=== PATIENT | female | born 1960 | race Caucasian/White ===

== ENCOUNTER 2016-07-03 12:06 | Emergency (ER) ==
[2016-07-03 12:19] VITALS: BP 116/78; TEMP 97.3; BMI 20.6
--- NOTE | 2016-07-03 12:23 | ED.PDOC ---
General ED Provider: Dr. LUCIA WOODALL JR Chief Complaint: Back Pain Stated Complaint: slipped and caught herself --now low back pain radiation left leg[End]3 days 97.3 81 20 116/78 910 Time Seen by Physician: 12:21 Mode of Arrival: Walk-In Information Source: Patient Exam Limitations: No limitations Nursing and Triage Documentation Reviewed and Agree: No Review of Systems - Review Of Systems Constitutional: Reports: No symptoms Eyes: Reports: No symptoms Ears, Nose, Mouth, Throat: Reports: No symptoms Respiratory: Reports: No symptoms Cardiac: Reports: No symptoms GI: Reports: No symptoms : Reports: No symptoms Musculoskeletal: Reports: Back pain, Other Skin: Reports: No symptoms Neurological: Reports: Other (pain radiates down left foot pain in left hip) All Other Systems: Other Past Medical History - Past Medical History Previously Healthy: No Endocrine: Reports: None Cardiovascular: Reports: None Respiratory: Reports: None Hematological: Reports: None Gastrointestinal: Reports: None Genitourinary: Reports: None Neuro/Psych: Reports: None Musculoskeletal: Reports: Joint Pain Cancer: Reports: None, Other (replacement bone marrow) Last Menstrual Period: menopause - Surgical History General Surgical History: Reports: None, Orthopedic (NECK C-6, C-7 ), Other ( replacement bone marrow) - Family History Family History: Reports: None - Social History Smoking Status: Current every day smoker, Heavy tobacco smoker Hx Substance Use: No Alcohol Screening: None Physical Exam - Physical Exam Appearance: Well-appearing Ill-appearing: Moderate Pain Distress: Moderate Eyes: RAFAEL, EOMI, Conjunctiva clear ENT: Ears normal, Nose normal, Oropharynx normal Neck: Supple Respiratory: Airway patent, Breath sounds clear, Breath sounds equal, Respirations nonlabored Cardiovascular: RRR, Pulses normal, No rub, No murmur GI/: Soft, Nontender, No masses, Bowel sounds normal, No Organomegaly Musculoskeletal: Normal strength, ROM intact, No edema, No calf tenderness ( left muscle tightness in leg without baltazar sciatica) Skin: Warm, Dry, Normal color Neurological: Sensation intact, Motor intact, Reflexes intact, Cranial nerves intact, Alert, Oriented Psychiatric: Affect appropriate, Mood appropriate Critical Care Note - Critical Care Note Total Time (mins): 0 Course - Course Vital Signs: Temp Pulse Resp BP Pulse Ox 07/03/16 12:07 97.3 F L 81 20 116/78 97 Departure - Departure Time of Disposition: 12:55 Disposition: HOME SELF-CARE Discharge Problem: Low back strain Qualifiers: Encounter type: initial encounter Qualifier Code: (S39.012A) Strain of muscle, fascia and tendon of lower back, initial encounter Instructions: Low Back Strain (ED), Acute Low Back Pain (ED) Condition: Good Pt referred to PMD for follow-up: Yes Additional Instructions: recheck PMD three days Flexeril for spasms Vance for pain not relieved by flexeril ICE PACK TO PAINFUL AREA THREE TO FOUR TIMES A DAY FOR 10 TO 20 MINUTES FOR TWO TO FOUR DAYS Allergies/Adverse Reactions: Allergies sumatriptan succinate [From Imitrex] Adverse Reaction (Verified 07/03/16 12:14) Difficulty Swallowing trimethoprim [From Bactrim] Adverse Reaction (Verified 07/03/16 12:14) Home Medications: Ambulatory Orders 1 [No Reported Medications] 07/03/16
== END 2016-07-03 13:13 | disposition home or self-care (01) ==
LOC: ED 12:06
DX: S39.012A Strain of muscle, fascia and tendon of lower back, initial encounter (principal); W01.0XXA Fall on same level from slipping, tripping and stumbling without subsequent striking against object, initial encounter; F17.210 Nicotine dependence, cigarettes, uncomplicated
CPT/HCPCS: 99282

== ENCOUNTER 2017-06-11 17:13 | Outpatient (CLI) ==
[2012-10-23 01:00] VITALS: TEMP 99.4
== END 2017-06-11 17:14 | disposition home or self-care (01) ==
LOC: LAB 17:13
PROVIDERS: ATTEND Emergency Medicine
DX: R06.02 Shortness of breath (principal); R10.84 Generalized abdominal pain; R53.1 Weakness
CPT/HCPCS: 36415; 80053; 84443; 85025

== ENCOUNTER 2017-06-14 13:05 | Outpatient (CLI) ==
[2012-10-23 01:00] VITALS: TEMP 99.4
--- NOTE | 2017-06-14 14:31 | CT ---
EXAM: CT chest without contrast HISTORY: Shortness of breath with cough and upper abdominal pain for 3 weeks COMPARISON: Same day CT abdomen pelvis and CT chest 12/29/2015 TECHNIQUE: Serial axial images of the chest were obtained from the lung apices to the upper abdomen without contrast. These were viewed in multiple planes. FINDINGS: The thyroid is normal. The visualized vessels are unchanged with the aortic arch measurin g 2.7 cm in diameter, unchanged from previous examination 2016. The heart is normal in size without pericardial effusion. There are no pathologically enlarged mediastinal or hilar lymph nodes. There i s mild wall thickening of the distal esophagus. There is no pneumothorax or pleural effusion. There is mild emphysematous disease. There is no cons olidation, nodule or mass. The airways are patent. The soft tissues in the upper abdomen are unremarkable. The osseous structures demonstrate scattered degenerative disease of the thoracic spine. IMPRESSION: 1. No acute consolidation with scattered moderate emphysema. 2. There is mild atherosclerotic disease of the aorta with the aortic arch measuring unchanged in si ze when compared to 2016.
--- NOTE | 2017-06-14 14:40 | CT ---
EXAM: CT Abdomen without contrast. CT Pelvis without contrast. HISTORY: Generalized abdominal pain. COMPARISON: None available. TECHNIQUE: Multiple axial images of the abdomen and pelvis were obtained without intravenous contras t. Images were reformatted in the coronal plane. FINDINGS: Please note that evaluation of the abdominal and pelvic structures is limited due to lack of intravenous contrast. The lung bases are clear. No acute osseous abnormality is identified. The liver, gallbladder, pancreas, spleen, and adrenal glands demonstrate normal contour. No calcifie d renal stones or hydronephrosis detected.. The bowel is normal in course and caliber without evidence for obstruction or inflammatory process. Mild [id number] diverticulosis noted. The appendix is normal. Uterus is small or absent. Urinary bl adder is unremarkable. No free fluid or free air detected. Atherosclerotic calcifications are prese nt IMPRESSION: No acute abnormality within the abdomen or pelvis.
== END 2017-06-14 13:06 | disposition home or self-care (01) ==
LOC: RAD 13:05
PROVIDERS: ATTEND Emergency Medicine
DX: R10.84 Generalized abdominal pain (principal); R06.02 Shortness of breath; F17.200 Nicotine dependence, unspecified, uncomplicated

== ENCOUNTER 2017-06-18 12:50 | Outpatient (CLI) ==
[2012-10-23 01:00] VITALS: TEMP 99.4
--- NOTE | 2017-06-18 15:10 | DI ---
Exam: Three x-rays of the cervical spine. Comparison: CT cervical spine performed 07/26/2013. Reason for exam: Cervicalgia. FINDINGS: No acute fracture is seen. There is multilevel degenerative disease with intervertebral b steven disc space height narrowing and osteophyte formation. Similar appearing osseous fusion is seen s panning C5-C7. The prevertebral soft tissues are within normal limits. The dens appears intact on t he open-mouth odontoid view. IMPRESSION: 1. No acute fracture or listhesis in the cervical spine. If clinical concern exists for radiculopathy or myelopathy, MRI may be performed. 2. Multilevel degenerative disease with intervertebral body disc space height narrowing and osteophy te formation. 3. Osseous fusion from C5-C7.
== END 2017-06-18 12:51 | disposition home or self-care (01) ==
LOC: RAD 12:50
PROVIDERS: ATTEND Emergency Medicine
DX: M54.2 Cervicalgia (principal)

== ENCOUNTER 2017-07-04 12:14 | Outpatient (CLI) ==
[2012-10-23 01:00] VITALS: TEMP 99.4
--- NOTE | 2017-07-04 21:19 | MRI ---
EXAM: MRI cervical spine without IV contrast. DATE: 04 July 2017. HISTORY: Cervical radiculopathy. C-spine surgery 1992 and 1993. TECHNIQUE: Sagittal and axial T1W and T2W sequences of the cervical spine along with sagittal IR and coronal T2W sequences were obtained using 1.2 Verena magnet. No IV contrast. COMPARISON: C-spine series 06/18/2017. CT C-spine 26 July 2013. FINDINGS: There is no cervical scoliosis. Previous discectomy and interbody osseous fusion (stable) is observed at C5-6. Partial anterior fusion of the C6 and C7 vertebral bodies is noted. A 1.5 mm anterior subluxation of C2 relative to C3 is noted. No other subluxation, acute fracture, osseous ma lignancy, or jumped facet is evident. Cervical vertebra are normal in height. Minor anterior wedge appearance of the T1 vertebral body is chronic. Bone marrow signal is normal. Small anterior osteop hytes are present at several levels. Mild C3-4 and moderate C4-5 disc space narrowing is detected. Superior osteophytes are noted at the C1 - odontoid articulation. Cervical and upper thoracic spinal cord reveals no syrinx, cord edema, myelomalacia, or neoplasm. Visible brainstem is normal. There is no cerebellar tonsillar ectopia. Mild adenoid hypertrophy geno ears chronic, and contains a small retention cyst. Visible mastoid air cells are normal. The T2W br ight, T1W intermediate signal, 3.5 mm focus in the anterior margin of the right side of the epiglotti s may represent adherent mucus or small cyst. Larynx and trachea appear normal. No thyroid, submand ibular, or parotid gland neoplasm is evident. No suspicious neck mass, cervical lymphadenopathy, api donnie lung mass, pneumonia, or pleural effusion is identified. Segmental analysis: C2-3: Minor anterior subluxation of C2 and small pseudodisc bulge do not cause cord compression or c entral stenosis. Mild right foraminal stenosis is due to uncinate hypertrophy and mild right facet ar thropathy. C3-4: Broad posterior disc/osteophyte complex (3 mm AP) does not contact the cord rest;, cord is sli ghtly flattened anteriorly. Canal is 9 mm AP. Marked right and moderate/marked left foraminal steno ses are due to uncinate hypertrophy, marked right facet arthropathy, and minor left facet disease. C4-5: Broad posterior disc/osteophyte complex (2.8 mm AP) approaches the cord anteriorly. Canal is 9.1 mm AP. Marked bilateral foraminal stenoses due to uncinate hypertrophy, moderate facet arthropat hy, and minor left facet disease. C5-6: S/P discectomy and interbody fusion. Canal is 10.6 mm AP mild right and moderate left foramin al stenoses due to uncinate hypertrophy. C6-7: Minor posterior disc/osteophyte complex (1.4 mm AP) does not contact the cord. Canal is 9.4 m m AP. Minor right foraminal narrowing is due to uncinate hypertrophy. C7-T1: small posterior disc bulge (1.6 mm AP) does not contact the cord. Canal is 10.3 mm AP. Each foramen is patent. T1-2: No disc protrusion or central stenosis. Mild/moderate foraminal narrowing is due to facet art hropathy. T2-3: Sagittal images reveal small posterior disc bulge, but no cord compression or central canal st enosis. Moderate right foraminal narrowing is due to uncinate hypertrophy and mild facet arthropathy . T3-4: Sagittal images reveal minor posterior disc bulge without cord compression, central stenosis o r left foraminal stenosis. Moderate foraminal stenosis is due to uncinate hypertrophy and mild facet arthropathy. IMPRESSIONS: 1. S/P discectomy and interbody osseous fusion at C5-6. Anterior osseous fusion at C6-7. 2. Mild cervical spondylosis, mild facet arthropathy, and multilevel DDD. 3. Mild cord flattening at C3-4 and C4-5. No syrinx or myelomalacia. 4. Multilevel moderate/high-grade cervical foraminal stenoses. 5. Mild adenoid hypertrophy appears chronic and likely benign. 6. Right side vallecula tiny cyst (3.5 mm) vs mucous secretions.
== END 2017-07-04 12:15 | disposition home or self-care (01) ==
LOC: RAD 12:14
PROVIDERS: ATTEND Emergency Medicine
DX: M54.12 Radiculopathy, cervical region (principal); M54.2 Cervicalgia

== ENCOUNTER 2017-07-09 13:04 | Outpatient (CLI) ==
[2012-10-23 01:00] VITALS: TEMP 99.4
[2017-07-09] MEDS ORDERED: ALBUTEROL 0.083% NEB NEB STA (13:20)
== END 2017-07-09 13:05 | disposition home or self-care (01) ==
LOC: CAR 13:04
PROVIDERS: ATTEND Emergency Medicine
DX: R06.02 Shortness of breath (principal); F17.200 Nicotine dependence, unspecified, uncomplicated

== ENCOUNTER 2018-03-10 12:24 | Outpatient (CLI) ==
[2012-10-23 01:00] VITALS: TEMP 99.4
== END 2018-03-10 12:25 | disposition home or self-care (01) ==
LOC: RHC-LAB 12:24
PROVIDERS: ATTEND Nurse Practitioner Family
DX: Z72.0 Tobacco use (principal)
CPT/HCPCS: 36415; 80053; 80061

== ENCOUNTER 2018-03-25 12:53 | Outpatient (CLI) ==
[2012-10-23 01:00] VITALS: TEMP 99.4
--- NOTE | 2018-03-26 09:49 | MAMMO ---
EXAM: Bilateral digital screening mammogram (2-D and 3-D) History: Screening Comparison: None available. Findings: MLO and CC views of bilateral breasts demonstrate heterogeneously dense breast parenchyma which can obscure small lesions. Benign appearing calcifications are seen within the right breast. CAD was reviewed by the radiologist. Tomosynthesis was performed. No dominant masses and no architec tural distortions Impression: Benign mammogram. Recommend followup routine screening mammography in 1 year. BIRADS 2
== END 2018-03-25 12:54 | disposition home or self-care (01) ==
LOC: RAD 12:53
PROVIDERS: ATTEND Nurse Practitioner Family
DX: Z12.31 Encounter for screening mammogram for malignant neoplasm of breast (principal)

== ENCOUNTER 2018-08-20 08:56 | Outpatient (CLI) ==
[2012-10-23 01:00] VITALS: TEMP 99.4
--- NOTE | 2018-08-20 11:07 | CT ---
EXAM: CT urogram HISTORY: Hematuria COMPARISON: None TECHNIQUE: CT urogram performed with and without intravenous contrast. Coronal and sagittal reforma tted images obtained. Post contrast images obtained in the arterial and delayed excretory phase. 3- D and MIP reformatted images created FINDINGS: Lung bases clear. Right sided Bochdalek hernia. No free air. No acute abnormalities of the bones. Heart normal in size. Liver appears normal. Gallbladder appears normal. Pancreas appea rs normal. Spleen appears normal. Adrenals appear normal. Aorta normal in caliber. Moderate ather osclerosis. No lymphadenopathy or ascites. Wall thickening distal esophagus. Small hiatal hernia. No dilated loops small bowel. Appendix appears normal. Colonic diverticulosis. Uterus unremarkabl e. No hydronephrosis or nephrolithiasis. No calculi visualized in normal course of the ureters. Renal cortical enhancement is symmetric. No renal mass. Excretion is symmetric. No filling defects ident ified in the right or left collecting system. No filling defects identified in the ureters, noting m ajority of the right and left ureter not opacified and therefore not evaluated. Partially opacified bladder is poorly distended and poorly evaluated, without abnormality identified IMPRESSION: 1. No hydronephrosis or nephrolithiasis. No renal mass. 2. Wall thickening distal esophagus could relate to esophagitis. Underlying lesion not excluded. R ecommend correlation with endoscopy. Small hiatal hernia also present 3. Colonic diverticulosis. 4. Atherosclerosis
== END 2018-08-20 08:57 | disposition home or self-care (01) ==
LOC: RAD 08:56
PROVIDERS: ATTEND Physician Assistant Medical
DX: R31.21 Asymptomatic microscopic hematuria (principal)
CPT/HCPCS: 36415; 82565

== ENCOUNTER 2018-08-22 15:03 | Outpatient (CLI) ==
[2012-10-23 01:00] VITALS: TEMP 99.4
== END 2018-08-22 15:04 | disposition home or self-care (01) ==
LOC: RHC-LAB 15:03
PROVIDERS: ATTEND Nurse Practitioner Family
DX: F41.9 Anxiety disorder, unspecified (principal); E78.5 Hyperlipidemia, unspecified; Z72.0 Tobacco use
CPT/HCPCS: 36415; 80053; 80061; 84443; 85025

== ENCOUNTER 2018-08-28 08:57 | Outpatient (CLI) ==
[2012-10-23 01:00] VITALS: TEMP 99.4
--- NOTE | 2018-08-28 09:48 | DI ---
EXAM: Cervical spine seven views, including flexion and extension views and oblique views HISTORY: Degenerative disc disease COMPARISON: 06/18/2017 FINDINGS: Osseous fusion of C5-C7. Vertebral bodies normal height. No fracture. Multilevel margin al osteophyte formation. Multilevel intervertebral disc space narrowing. Multilevel facet and uncov ertebral hypertrophy. Degenerative changes cause bilateral neural foraminal narrowing that is greate st at C4-C5 bilaterally. No spondylolisthesis in neutral position or with flexion or extension. Pre vertebral soft tissues appear normal. IMPRESSION: 1. Chronic discogenic degenerative disease and facet arthrosis. 2. Osseous fusion C5-C7. 3. No spondylolisthesis. No segment instability.
--- NOTE | 2018-08-28 11:18 | MRI ---
Examination: MRI of the cervical spine without contrast 08/28/2018 Clinical information: Cervical degenerative disc disease, C5-6 fusion. Comparison: 07/04/2017. TECHNIQUE: Sagittal and axial T1 and T2W imaging, sagittal STIR, coronal T2 and axial 3-D T2W sequen leeanne were performed. FINDINGS: The craniocervical junction is unremarkable. The cervical spinal cord is normal in overall signal, size and morphology. Status post C5-6 ACDF with osseous interbody fusion. There is partial osseous interbody fusion at C6-C7. Straightening of the usual lower cervical lordosis. The cervica l vertebrae are otherwise normal in height and AP alignment. There is moderate loss of disc height a t C3-C4 with discogenic endplate irregularity and minor degenerative endplate edema eccentric left. Severe loss of disc height at C4-C5 with ventral spondylosis and minor discogenic endplate irregulari ty. There is no unusual marrow edema. No paravertebral edema is seen. Minor S-shaped cervicothorac ic scoliosis. There are submucosal cysts within the posterior nasopharynx. At the C2-C3 level, there is a small left paracentral disc protrusion. Modest right and mild left fa cet arthropathy. No significant central spinal canal stenosis or foraminal stenosis. At the C3-C4 level, there is a broad-based posterior disc/osteophyte complex eccentric left which fla ttens the cord causing mild-moderate central spinal canal stenosis. There is severe bilateral forami nal stenosis. Mild bilateral facet hypertrophy. At the C4-C5 level, there is a broad-based posterior disc/osteophyte complex which flattens the cord causing moderate central spinal canal stenosis. There is moderate right and mild left hypertrophic f acet arthropathy. There is severe bilateral foraminal stenosis due to facet and uncovertebral hypert rophy. At the C5-6 level, there is osseous interbody fusion. No significant central spinal canal stenosis o r foraminal stenosis. At the C6-C7 level, there is osseous interbody fusion. A dorsal spondylotic ridge eccentric left whi ch slightly indents the cord causing mild central spinal canal stenosis. There is mild right neural foraminal stenosis. At the C7-T1 level, there is moderate left and mild right hypertrophic facet arthropathy. Reactive l eft facet joint edema. There is no central spinal canal stenosis. There is mild right neural forami nal stenosis. When compared to the 07/04/2017 exam, no significant interval change. The reactive left C7-T1 facet joint edema is new. Impression: 1. Mild-moderate C3-C4 and moderate C4-C5 central spinal canal stenosis secondary to broad-based pos terior disc/osteophyte complexes which flatten the cord. 2. Multilevel foraminal stenosis as noted, most severe at C3-C4 and C4-C5. 3. Status post C5-6 ACDF with osseous interbody fusion. Partial osseous interbody fusion at C6-C7. Mild C6-C7 central spinal canal stenosis secondary to a dorsal spondylotic ridge. 4. Multilevel hypertrophic facet arthropathy. Reactive left C7-T1 facet joint edema.
== END 2018-08-28 08:58 | disposition home or self-care (01) ==
LOC: RAD 08:57
PROVIDERS: ATTEND Physician Assistant Surgical
DX: M54.12 Radiculopathy, cervical region (principal); M47.22 Other spondylosis with radiculopathy, cervical region; M50.30 Other cervical disc degeneration, unspecified cervical region; G56.21 Lesion of ulnar nerve, right upper limb

== ENCOUNTER 2018-09-23 12:30 | Emergency (ER) ==
[2018-09-23 12:44] VITALS: BMI 21.1
[2018-09-23 16:19] VITALS: BP 114/72; TEMP 98.1
--- NOTE | 2018-09-23 17:19 | ED.PDOC ---
General ED Provider: Dr. AILIN BRYANT Chief Complaint: Bite Stated Complaint: Syncopal episode/tick bite/ok now. Had tick bite to lt groin last week. No inflamatory changes now feels like small gland swollen but not painful. Yeserday had abdomial cramping-Nausea, while standing preparing to leave her friends house to go home became light headed, slid down pole to ground while holding on to her friend then has brief LOC/ Then had N-V and felt better Time Seen by Physician: 17:00 Mode of Arrival: Walk-In Information Source: Patient Exam Limitations: No limitations Primary Care Provider: SHIRA BELLO Nursing and Triage Documentation Reviewed and Agree: Yes Does patient meet sepsis criteria?: No If yes, has appropriate treatment been initiated?: No System Inflammatory Response Syndrome: Not Applicable Sepsis Protocol: For patient's 13 years and over: Temp is 96.8 and below OR 101 and greater Pulse >90 BPM Resp >20/minute Acutely Altered Mental Status Are patient's symptoms suggestive of a new infection, such as: -Pneumonia -Skin, Soft Tissue -Endocarditis -UTI -Bone, Joint Infection -Implantable Device -Acute Abdominal Infection -Wound Infection -Meningitis -Blood Stream Catheter Infection -Unknown Review of Systems - Review Of Systems Constitutional: Reports: Weakness Eyes: Reports: No symptoms Ears, Nose, Mouth, Throat: Reports: No symptoms Respiratory: Reports: No symptoms Cardiac: Reports: Syncope GI: Reports: No symptoms : Reports: No symptoms Musculoskeletal: Reports: No symptoms Skin: Reports: Other (tick bite) Neurological: Reports: Weakness Endocrine: Reports: No symptoms Hematologic/Lymphatic: Reports: No symptoms All Other Systems: Reviewed and Negative Past Medical History - Past Medical History Previously Healthy: No Endocrine: Reports: None Cardiovascular: Reports: None Respiratory: Reports: None Hematological: Reports: None Gastrointestinal: Reports: None Genitourinary: Reports: None Neuro/Psych: Reports: None Musculoskeletal: Reports: Joint Pain Cancer: Reports: None, Other (replacement bone marrow) Last Menstrual Period: 20 years - Surgical History General Surgical History: Reports: None, Orthopedic (NECK C-6, C-7 ), Other ( replacement bone marrow) - Family History Family History: Reports: None - Social History Smoking Status: Current every day smoker, Heavy tobacco smoker Hx Substance Use: No Alcohol Screening: None Physical Exam - Physical Exam Appearance: Well-appearing, No pain distress, Well-nourished Eyes: RAFAEL, EOMI, Conjunctiva clear ENT: Ears normal, Nose normal, Oropharynx normal Respiratory: Airway patent, Breath sounds clear, Breath sounds equal, Respirations nonlabored Cardiovascular: RRR, Pulses normal, No rub, No murmur GI/: Soft, Nontender, No masses, Bowel sounds normal, No Organomegaly Musculoskeletal: Normal strength, ROM intact, No edema, No calf tenderness Skin: Warm, Dry, Normal color Neurological: Sensation intact, Motor intact, Reflexes intact, Cranial nerves intact, Alert, Oriented Psychiatric: Affect appropriate, Mood appropriate Interpretation - Radiology Interpretation Exam Interpreted: Portable CXR (Normal findings), CT Scan (Head-normal) Critical Care Note - Critical Care Note Total Time (mins): 0 Course - Course Hematology/Chemistry: 09/23/18 17:38 09/23/18 17:38 Orders, Labs, Meds: Lab Review 09/23/18 09/23/18 09/23/18 17:38 17:38 17:38 WBC 6.97 RBC 4.47 Hgb 13.2 Hct 40.5 MCV 90.6 MCH 29.5 MCHC 32.6 RDW Coeff of Nayla 12.3 Plt Count 179 Immature Gran % (Auto) 0.1 Neut % (Auto) 61.4 Lymph % (Auto) 26.5 [place] % (Auto) 6.5 Eos % (Auto) 4.6 Baso % (Auto) 0.9 Immature Gran # (Auto) 0.0 Neut # (Auto) 4.3 Lymph # (Auto) 1.9 [place] # (Auto) 0.5 Eos # (Auto) 0.3 Baso # (Auto) 0.1 Sodium 137.6 Potassium 4.12 Chloride 101.3 Carbon Dioxide 27.3 Anion Gap 13.12 BUN 20.2 H Creatinine 0.88 Estimated GFR (MDRD) 66.00 BUN/Creatinine Ratio 22.95 Glucose 132.3 H Calcium 9.13 Total Bilirubin 0.35 AST 29.0 ALT 19.8 Alkaline Phosphatase 67.9 Troponin I < 0.012 Total Protein 7.79 Albumin 4.57 Globulin 3.22 Albumin/Globulin Ratio 1.41 Lyme IgG 18 kDa Band Absent Lyme IgG 23 kDa Band Absent Lyme IgG 28 kDa Band Absent Lyme IgG 30 kDa Band Absent Lyme IgG 39 kDa Band Absent Lyme IgG 41 kDa Band Absent Lyme IgG 45 kDa Band Absent Lyme IgG 58 kDa Band Absent Lyme IgG 66 kDa Band Absent Lyme IgG 93 kDa Band Absent Lyme IgG W Blot Interp Negative Lyme IgM 23 kDa Band Absent Lyme IgM 39 kDa Band Absent Lyme IgM 41 kDa Band Present H Lyme IgM Interpretaton Negative Spotted Fever Grp IgM 0.98 H Rickettsia IgG Ab Negative Rickettsia IgG Ab IFA Orders Category Date Time Status EKG-(ED ONLY) Stat CARDIO 09/23/18 17:27 Completed CBC W/ AUTO DIFF Stat LAB 09/23/18 17:38 Completed CMP [COMPREHENSIVE METABOLIC PANEL] Stat LAB 09/23/18 17:38 Completed LYME, WESTERN BLOT, SERUM Stat LAB 09/23/18 17:38 Completed ANTONINO MTN SPOTTED FEVER,IgG Stat LAB 09/23/18 17:38 Completed ANTONINO MTN SPOTTED FEVER,IgM Stat LAB 09/23/18 17:38 Completed TROPONIN I Stat LAB 09/23/18 17:38 Completed CHEST, 1V AP ONLY Stat RADS 09/23/18 17:[address] HEAD W/O CONTRAST Stat RADS 09/23/18 17:27 Completed Vital Signs: Temp Pulse Resp BP Pulse Ox 09/23/18 15:25 98.1 F 70 20 114/72 97 09/23/18 12:31 97.8 F 73 20 135/81 94 L DEVON Risk Score DEVON Risk Score: Risk Score Odds of by 30D 0 0.1 (0.1-0.2) 1 0.3 (0.2-0.3) 2 0.4 (0.3-0.5) 3 0.7 (0.6-0.9) 4 1.2 (1.0-1.5) 5 2.2 (1.9-2.6) 6 3.0 (2.5-3.6) 7 4.8 (3.8-6.1) Departure - Departure Time of Disposition: 18:45 Disposition: HOME SELF-CARE Discharge Problem: Vasovagal episode Instructions: Tick Bite (ED) Condition: Good Pt referred to PMD for follow-up: Yes IPMP verified?: No Additional Instructions: Remain on all meds Follow up PCP in 1 week Allergies/Adverse Reactions: Allergies sumatriptan succinate [From Imitrex] Adverse Reaction (Verified 09/23/18 12:45) Difficulty Swallowing trimethoprim [From Bactrim] Adverse Reaction (Verified 09/23/18 12:45) Home Medications: Ambulatory Orders Hydrocodone/Acetaminophen [[place] 7.5-325 Tablet] 1 each PO BID #60 tab-cap 01/13 Disposition Discussed With: Patient Neurological Complaint Exam - Syncope/Near Syncope Complaint/Exam Onset/Duration: 24 hrs Symptoms Are: Resolved Episodes Lasting: Minutes Episodes Witnessed: Yes Loss of Consciousness: Yes (1 min) Associated Head Trauma: No Activity at Onset: At rest Alleviating: Reports: Spontaneous resolution Associated Signs and Symptoms: Denies: Pain, Decreased oral intake, Vomiting, Diarrhea, GI blood loss, Short of air, Chest pain, Palpitations, Diaphoresis, Lightheadedness, Dizziness, Weakness, AMS, Numbness, Headache, Seizure, Remote head trauma, Recent head trauma Dysrhythmia Risk Factors: Reports: >45 years old Related Surgical History: Reports: None JVD Present: No Carotid Bruit Present: No Nystagmus Present: No Gag Reflex Present: Yes Meningeal Signs Positive: No Focal Weakness: Present: None Focal Sensory Loss: Present: None Gait: Normal Differential Diagnoses: Dysrhythmia, Vasovagal Episode
--- NOTE | 2018-09-23 18:37 | CT ---
EXAM: CT brain without contrast HISTORY: Near syncope TECHNIQUE: CT of the brain without intravenous contrast FINDINGS: There is no acute hemorrhage midline shift or mass effect. No hydrocephalus or abnormal e xtra-axial fluid collection. No significant parenchymal attenuation abnormality. The bony cranium a ppears normal. The visualized paranasal sinuses are clear. Soft tissues without significant abnormal ity. IMPRESSION: 1. CT of the brain within normal limits.
--- NOTE | 2018-09-23 18:42 | DI ---
EXAM: Single View Chest HISTORY: Vagal reaction COMPARISON:09/01/2008 FINDINGS: No definitive focal infiltrates, pneumothorax or effusions are identified. Cardiac size is within no rmal limits. Mediastinal silhouette appears stable. Bony structure evaluation is limited on single view. Right hemidiaphragm elevation is present. IMPRESSION: No definite acute cardiopulmonary process identified.
== END 2018-09-23 19:07 | disposition home or self-care (01) ==
LOC: ED 12:30
DX: R55 Syncope and collapse (principal); R53.1 Weakness; R11.2 Nausea with vomiting, unspecified; S30.861A Insect bite (nonvenomous) of abdominal wall, initial encounter; W57.XXXA Bitten or stung by nonvenomous insect and other nonvenomous arthropods, initial encounter; F17.210 Nicotine dependence, cigarettes, uncomplicated
CPT/HCPCS: 36415; 80053; 84484; 85025; 86617; 86757; 93005; 93010; 99283

== ENCOUNTER 2018-10-15 15:27 | Outpatient (CLI) ==
[2012-10-23 01:00] VITALS: TEMP 99.4
== END 2018-10-15 15:28 | disposition home or self-care (01) ==
LOC: RHC-LAB 15:27
PROVIDERS: ATTEND Nurse Practitioner Family
DX: S30.861A Insect bite (nonvenomous) of abdominal wall, initial encounter (principal); R22.9 Localized swelling, mass and lump, unspecified
CPT/HCPCS: 36415

== ENCOUNTER 2018-10-30 09:01 | Outpatient (CLI) ==
[2012-10-23 01:00] VITALS: TEMP 99.4
--- NOTE | 2018-10-30 10:22 | US ---
EXAM: Ultrasound groin, left. HISTORY: Left groin region of palpable area adjacent to recent insect bite. FINDINGS: Webb-scale ultrasound and color Doppler imaging was performed in the region of interest de scribed as the left medial groin palpable area. In this region, there were a few small hypoechoic masses with echogenic conner suggesting benign normal -sized lymph nodes. The images also revealed a 4.3 x 1.8 x 3.7 cm relatively well-defined subcutaneo us mass which is isoechoic to the adjacent subcutaneous fat. Although this could represent a complex fluid collection, a small hernia could also be considered. Consider correlation with enhanced CT of the pelvis. IMPRESSION: 1. A well-defined mass found in the region of interest as described.
== END 2018-10-30 09:02 | disposition home or self-care (01) ==
LOC: RAD 09:01
PROVIDERS: ATTEND Nurse Practitioner Family
DX: R22.9 Localized swelling, mass and lump, unspecified (principal); S30.861A Insect bite (nonvenomous) of abdominal wall, initial encounter
CPT/HCPCS: 76882

== ENCOUNTER 2022-07-28 06:57 | Inpatient (IN) ==
[2022-07-28 07:04] VITALS: BMI 19.8
[2022-07-28] MEDS ORDERED: ZOFRAN 4 MG/2 ML IVP ONE (07:25)
[2022-07-28] MEDS ORDERED: SODIUM CHLORIDE 1,000 ML IV STA (07:25)
[2022-07-28] MEDS ORDERED: TORADOL IVP ONE (07:25)
--- NOTE | 2022-07-28 07:35 | ED.PDOC ---
General ED Provider: Dr. NEDA GARCIA MD Chief Complaint: Nausea/Vomiting Stated Complaint: mild to mod NV today w/ nonrad diffuse abdominal cramps, no fever, hx diverticulitis, copd, no lethargy Time Seen by Provider: 07/28/22 07:07 Mode of Arrival: Walk-In Information Source: Patient Primary Care Provider: BECCA RIVAS APRN, [place]JU[place] Nursing and Triage Documentation Reviewed and Agree: Yes Does patient meet sepsis criteria?: No System Inflammatory Response Syndrome: Not Applicable Sepsis Protocol: For patient's 13 years and over: Temp is 96.8 and below OR 101 and greater Pulse >90 BPM Resp >20/minute Acutely Altered Mental Status Are patient's symptoms suggestive of a new infection, such as: -Pneumonia -Skin, Soft Tissue -Endocarditis -UTI -Bone, Joint Infection -Implantable Device -Acute Abdominal Infection -Wound Infection -Meningitis -Blood Stream Catheter Infection -Unknown Review of Systems Review Of Systems Constitutional: Denies Fever Eyes: Denies Vision change Ears, Nose, Mouth, Throat: Denies Throat pain Respiratory: Denies Short of air Cardiac: Denies Chest pain GI: Reports Abdominal pain and Vomiting : Denies Frequency Musculoskeletal: Denies Neck pain Skin: Denies Rash or Cyanosis Neurological: Denies Cognitive dysfunction All Other Systems: Other PFSH Medical History Abdominal pain Arthritis Bladder mass Cervical stenosis of spine Chronic neck pain Colon cancer screening COPD (chronic obstructive pulmonary disease) Cord compression Cough Cough Exposure to medical diagnostic radiation Gasping for breath Hematuria Hematuria of unknown cause Hiatal hernia Hyperlipidemia Influenza B Inguinal hernia Migraines Neck pain Painless hematuria Painless hematuria Personal history of musculoskeletal disorder Preventive measure Recurrent and persistent hematuria Recurrent and persistent hematuria [place] spotted fever Sore throat Tobacco use Family History Mother No problems noted. Other AA (aortic aneurysm) Brain aneurysm Social History Smoking and tobacco status: Current every day smoker Tobacco: How many years used: 40 Passive smoking exposure: Yes Quit status: considering quitting Second hand smoke exposure: Yes Smoking risk assessment performed: No Alcohol intake: never Substance use type: does not use Natacha/anglican: [employer] Special natacha needs: No Agree to transfusion: Yes Adopted: No Caregiver/support person: Yes Foster care: No Household members: none Housing: house Lives independently: Yes Highest education level completed: 11th grade Financial difficulty paying for basics: not applicable service: No jail: No Current occupational status: unemployed and disabled Current occupational exposures/hazards: No Pets and animals: Yes Leisure activites: music, games and reading History of recent travel: No Sexually active: No Do you think of yourself as: lesbian/long/homosexual Current gender identity: female Seatbelt use: always Helmet use: No Drives intoxicated or rides with intoxicated crude oil driver: No Water heater temperature set < 120 degrees: Yes Working smoke detector in home: Yes Fire extinguisher in home: Yes Carbon monoxide detector in home: Yes Firearms in home: Yes Surgical History History of musculoskeletal system surgery History of surgery on integumentary structure Female Reproductive History Menstrual Hx Hysterectomy: No Hx Tubal Ligation: No Physical Exam Physical Exam Appearance: Reports Ill-appearing Ill-appearing: Mild Pain Distress: Mild Eyes: Reports Conjunctiva clear ENT: Reports Oropharynx normal Neck: Supple Respiratory: Reports Airway patent and Breath sounds equal Cardiovascular: Reports RRR GI/: Reports Soft and Tender (no rebound) Musculoskeletal: Reports ROM intact and No edema Skin: Reports Warm and Dry Neurological: Reports Alert and Oriented Psychiatric: Reports Affect appropriate Interpretation Radiology Interpretation Radiology Interpretation By: Radiologist Exam Interpreted: CT Scan Xray Comments: diverticulitis EKG Interpretation Time of EKG #1: 08:35 Rate: Normal Rhythm: Sinus Interpretation: rbbb, no stemi Critical Care Note Critical Care Note Total Critical Care Time (mins): 0 Course Course Hematology/Chemistry: 07/28/22 07:46 07/28/22 07:46 Orders, Labs, Meds: Lab Review 07/28/22 07/28/22 07/28/22 07:35 07:46 07:46 WBC 16.52 H RBC 4.76 Hgb 14.4 Hct 41.5 MCV 87.2 MCH 30.3 MCHC 34.7 RDW Coeff of Nayla 11.9 Plt Count 444 H Immature Gran % (Auto) 0.4 Neut % (Auto) 86.4 H Lymph % (Auto) 6.3 L Person % (Auto) 6.6 Eos % (Auto) 0.1 Baso % (Auto) 0.2 Neut # (Auto) 14.3 H Lymph # (Auto) 1.0 Person # (Auto) 1.1 Eos # (Auto) 0.0 Baso # (Auto) 0.0 Immature Gran # (Auto) 0.1 Sodium 140.2 Potassium 3.16 L Chloride 100.9 Carbon Dioxide 20.9 L Anion Gap 21.56 BUN 10.1 Creatinine 0.70 Estimated GFR (MDRD) 85.00 BUN/Creatinine Ratio 14.42 Glucose 99.0 Lactic Acid Calcium 9.77 Total Bilirubin 0.73 AST 27.8 ALT 20.2 Alkaline Phosphatase 114.6 Troponin I < 0.012 Total Protein 8.42 H Albumin 4.53 Globulin 3.89 Albumin/Globulin Ratio 1.16 Lipase 23.7 SARS CoV-2 RNA Rapid TERRI Negative 07/28/22 07:46 WBC RBC Hgb Hct MCV MCH MCHC RDW Coeff of Nayla Plt Count Immature Gran % (Auto) Neut % (Auto) Lymph % (Auto) Person % (Auto) Eos % (Auto) Baso % (Auto) Neut # (Auto) Lymph # (Auto) Person # (Auto) Eos # (Auto) Baso # (Auto) Immature Gran # (Auto) Sodium Potassium Chloride Carbon Dioxide Anion Gap BUN Creatinine Estimated GFR (MDRD) BUN/Creatinine Ratio Glucose Lactic Acid 0.84 Calcium Total Bilirubin AST ALT Alkaline Phosphatase Troponin I Total Protein Albumin Globulin Albumin/Globulin Ratio Lipase SARS CoV-2 RNA Rapid TERRI Orders Category Date Time Status EKG-(ED ONLY) Stat CARDIO 07/28/22 07:25 Ordered BLOOD CULTURE Stat LAB 07/28/22 08:32 Ordered CBC W/ AUTO DIFF Stat LAB 07/28/22 07:46 Completed CMP [COMPREHENSIVE METABOLIC PANEL] Stat LAB 07/28/22 07:46 Completed LACTIC ACID Stat LAB 07/28/22 07:46 Completed LIPASE Stat LAB 07/28/22 07:46 Completed SARS COV-2 RNA RAPID TERRI Stat LAB 07/28/22 07:35 Completed TROPONIN I Stat LAB 07/28/22 07:46 Completed URINALYSIS C & S IF INDICATED Stat LAB 07/28/22 07:25 Uncollected 500 mg IV Once One MEDS 07/28/22 08:32 Ordered Levofloxacin/D5w [Levaquin 500 mg/100 ml D5w] 500 mg in 100 ml IV ONCE 500 mg IV Once One MEDS 07/28/22 08:32 Ordered Metronidazole/Sodium Chloride [Flagyl 500 mg/100 ml] 500 mg in 100 ml IV ONCE Hydromorphone HCl [Dilaudid 1 mg/ml Syringe] MEDS 07/28/22 08:32 Ordered 1 mg IVP Q6HR PRN Ketorolac Tromethamine [Toradol] MEDS 07/28/22 07:25 Discontinued 30 mg IVP ONCE ONE Ondansetron HCl/Pf [Zofran 4 mg/2 ml] MEDS 07/28/22 07:25 Discontinued 4 mg IVP ONCE ONE Sodium Chloride 0.9% [Sodium Chloride] 1,000 ml MEDS 07/28/22 07:[address] ABDOMEN/PELVIS WO CONTRAST Stat RADS 07/28/22 07:25 Completed Medications Generic Name Dose Route Start Last Admin Trade Name Freclara PRN Reason Stop Dose Admin Hydromorphone HCl 1 mg 07/28/22 08:32 Hydromorphone Hcl 1 Mg/Ml Syringe IVP Q6HR PRN Abdominal Pain Levofloxacin/Dextrose 500 mg in 100 mls @ 100 mls/hr 07/28/22 08:32 Levaquin 500 Mg/100 Ml D5w IV 07/28/22 09:31 ONCE ONE Metronidazole 500 mg in 100 mls @ 100 mls/hr 07/28/22 08:32 Flagyl 500 Mg/100 Ml IV 07/28/22 09:31 ONCE ONE Discontinued Medications Generic Name Dose Route Start Last Admin Trade Name Freclara PRN Reason Stop Dose Admin Sodium Chloride 1,000 mls @ 1,000 mls/hr 07/28/22 07:25 07/28/22 07:38 Sodium Chloride IV 07/28/22 08:24 1,000 mls/hr BOLUS STA Administration Ketorolac Tromethamine 30 mg 07/28/22 07:25 07/28/22 07:38 Ketorolac Tromethamine 30 Mg/Ml Vial IVP 07/28/22 07:26 30 mg ONCE ONE Administration Ondansetron HCl 4 mg 07/28/22 07:25 07/28/22 07:38 Ondansetron Hcl/Pf 4 Mg/2 Ml Sdv IVP 07/28/22 07:26 4 mg ONCE ONE Administration Vital Signs: Temp Pulse Resp BP Pulse Ox 07/28/22 06:58 97.9 F 103 H 32 H 118/77 96 Discharge Plan Discharge Patient Disposition: ADMITTED INPATIENT Discharge Problem: Diverticulitis Prescriptions: No Action hydrocodone-acetaminophen [[place]] 1 EACH tablet 1 ea PO BID Qty: 60 Rx Instructions: Pain Management [id number] 1 EACH tablet 1 ea PO BID Qty: 30 0RF Rx Instructions: Pain Management albuterol sulfate [Ventolin HFA] 90 mcg/actuation HFA aerosol inhaler 2 puff inhalation Q4-6H PRN (Reason: shortness of breath or wheezing) Qty: 8.5 2RF Stiolto Respimat 2.5-2.5 mcg/actuation mist 2 puff inhalation QDAY Qty: 4 3RF promethazine 25 mg suppository 25 mg VA Q6H PRN (Reason: nausea and vomiting) Qty: 12 0RF atorvastatin 40 mg tablet 40 mg PO QHS Qty: 90 0RF ondansetron 4 mg tablet,disintegrating 4 mg PO Q8H PRN (Reason: nausea and vomiting) Qty: 30 0RF omeprazole 40 mg capsule,delayed release(DR/EC) 40 mg PO QDAY Qty: 30 3RF Did you review [place] SEAMLESS TUBE ROLLER for ALL controlled substances?: Not Applicable ED Provider: NEDA GARCIA Condition: Stable Physician Progress Note: [] hospitalist full admit
[2022-07-28 07:53] LABS: BASOPHILS % (AUTO) 0.2 % (0.0-3.0); EOSINOPHILS % (AUTO) 0.1 % (0.0-7.0); HEMATOCRIT 41.5 % (37.0-47.0); HEMOGLOBIN 14.4 g/dl (12.0-16.0); IMMATURE GRANULOCYTE # (AUTO) 0.1 (0.0-1.0); IMMATURE GRANULOCYTE % (AUTO) 0.4 % (0.0-5.0); LYMPHOCYTES % (AUTO) 6.3 (10.0-50.0); MEAN CORPUSCULAR HEMOGLOBIN 30.3 pg (27.0-31.0); MEAN CORPUSCULAR HGB CONC 34.7 (31.8-35.4); MEAN CORPUSCULAR VOLUME 87.2 fl (81.0-99.0); MONOCYTES # (AUTO) 1.1 K/uL (0.4-2.0); MONOCYTES % (AUTO) 6.6 (0-10); NEUTROPHILS # (AUTO) 14.3 K/ul (2.0-6.9); NEUTROPHILS % (AUTO) 86.4 % (42.2-75.2); PLATELET COUNT 444 10^3/uL (140-440); RDW COEFFICIENT OF VARIATION 11.9 % (11.6-14.8); RED BLOOD COUNT 4.76 10^6/ul (4.20-5.40); WHITE BLOOD COUNT 16.52 K/ul (4.6-10.2)
[2022-07-28 08:07] LABS: ALANINE AMINOTRANSFERASE 20.2 U/L (0-35); ALBUMIN 4.53 g/dL (3.5-5.0); ALKALINE PHOSPHATASE 114.6 U/L (53-141); ASPARTATE AMINO TRANSFERASE 27.8 U/L (14-36); BILIRUBIN,TOTAL 0.73 mg/dL (0.2-1.3); BLOOD UREA NITROGEN 10.1 mg/dL (7-17); CALCIUM 9.77 mg/dL (8.4-10.2); CARBON DIOXIDE 20.9 mmol/L (22-30.0); CHLORIDE 100.9 mmol/L (98-107); LIPASE 23.7 U/L (23-300); POTASSIUM 3.16 mmol/L (3.5-5.1); SODIUM 140.2 mmol/L (134.5-145); TOTAL PROTEIN 8.42 g/dL (6.3-8.2)
[2022-07-28 08:21] LABS: TROPONIN I < 0.012 ng/ml (0.0000-0.120)
--- NOTE | 2022-07-28 08:21 | CT ---
EXAM: CT ABDOMEN AND PELVIS WITHOUT ADMINISTRATION OF CONTRAST. HISTORY: Abdominal pain, nausea, vomiting. TECHNIQUE: Multi-slice transaxial helical CT. Coronal and sagittal reformatons were performed. COMPARISON: 10/31/2021 FINDINGS: Included views of the lower chest demonstrate emphysema, and normal heart size, and no pericardial or pleural effusion. The liver is normal in size with focal fatty infiltration in the anterior left hepatic lobe adjacent to the intersegmental fissure. Suspected layering sludge is noted in the nondilated gallbladder. The spleen, pancreas, bilateral adrenal glands, and bilateral kidneys are grossly unremarkable. There i s calcified aortoiliac atherosclerotic plaque without aneurysm formation. No abdominopelvic lymphade nopathy is appreciated on this noncontrast enhanced examination. There is a small hiatal hernia. The stomach, small bowel, and colon are nondilated. The appendix is normal. There is distal colonic diverticulosis with adjacent sore segment pericolonic inflammation and ill-defined wall thickening in the sigmoid colon. Small volume layering free fluid is noted in t his location plus representing coalescent reactive edema. No free intraperitoneal air is identified. An unchanged fat containing left inguinal hernia is again noted. Multiple unchanged small lucent lesion scattered in the bony pelvis likely represent islands of red m arrow. There is mild bilateral hip joint osteoarthritis and severe right L4-L5 facet arthropathy. :::::::::::::::::::::::::::::: IMPRESSION: 1. Acute uncomplicated sigmoid diverticulitis. 2. Small hiatal hernia. :::::::::::::::::::::::::::::: All CT scans are performed using dose optimization techniques as appropriate to the performed exam an d include at least one of the following: Automated exposure control, adjustment of the mA and/or kV according t o size, and the use of iterative reconstruction technique. All CT scans are performed using dose optimization techniques as appropriate to the performed exam an d include at least one of the following: Automated exposure control, adjustment of the mA and/or kV according t o size, and the use of iterative reconstruction technique.
[2022-07-28 08:28] LABS: SARS COV-2 RNA RAPID NAAT NEGATIVE (NEGATIVE)
[2022-07-28] MEDS ORDERED: LEVAQUIN 500 MG/100 ML D5W 500 MG/100 ML BAG IV ONE (08:32)
[2022-07-28] MEDS ORDERED: FLAGYL 500 MG/100 ML 500 MG/100 ML BAG IV ONE ×2 (08:32→08:36)
[2022-07-28] MEDS ORDERED: TYLENOL PO PRN (08:36)
[2022-07-28] MEDS ORDERED: POTASSIUM CHL 10% ORAL SOL PO ONE (08:36)
[2022-07-28] MEDS ORDERED: VENTOLIN HFA (PER PUFF-WITH SPACER) IH PRN (08:40)
[2022-07-28] MEDS ORDERED: NON-FORMULARY MEDICATION (Tiotropium-Olodaterol [Stiolto Respimat] 2.5-2.5 mcg/actuation m IH SCH (08:45)
[2022-07-28] MEDS: DILAUDID 1 MG/ML SYRINGE IVP PRN ×3 (08:47→20:07)
[2022-07-28] MEDS ORDERED: FIORICET PO SCH (09:00)
[2022-07-28] MEDS ORDERED: FIORICET PO PRN (09:43)
[2022-07-28] MEDS: PRILOSEC PO SCH (10:01)
[2022-07-28] MEDS: ANORO ELLIPTA 62.5-25 MCG INH IH SCH (10:01)
[2022-07-28] MEDS: NORCO 7.5-325 PO SCH ×2 (10:02→23:26)
[2022-07-28] MEDS: ZOFRAN 4 MG/2 ML IVP SCH ×3 (10:02→20:07)
[2022-07-28] MEDS: SODIUM CHLORIDE 1,000 ML IV SCH ×2 (10:09→23:32)
[2022-07-28] MEDS: FLAGYL 500 MG/100 ML 500 MG/100 ML BAG IV SCH ×2 (11:59→21:08)
[2022-07-28] MEDS ORDERED: K-DUR PO ONE (14:38)
[2022-07-28 21:00] LABS: BILIRUBIN,URINE 2+ (NEGATIVE); CLARITY,URINE Slightly (CLEAR); COLOR,URINE Dark (YELLOW); GLUCOSE, URINE (UA) Negative (NEGATIVE); KETONES,URINE 3+ (NEGATIVE); LEUKOCYTE ESTERASE ,URINE Negative (NEGATIVE); NITRITE,URINE Negative (NEGATIVE); PH,URINE 6.5 (5-9); PROTEIN,URINE 2+ (NEGATIVE); URINE, BLOOD 3+ (NEGATIVE)
[2022-07-28] MEDS: LIPITOR PO SCH (21:08)
[2022-07-28 21:10] LABS: URINE RBC, MICROSCOPIC 20-30 (0-2)
[2022-07-28 21:11] LABS: SQUAMOUS EPITHELIAL CELL,UR 0-2 (0-5)
[2022-07-29] MEDS: DILAUDID 1 MG/ML SYRINGE IVP PRN ×5 (01:36→23:20)
[2022-07-29] MEDS: FLAGYL 500 MG/100 ML 500 MG/100 ML BAG IV SCH ×3 (05:16→20:51)
[2022-07-29] MEDS: PRILOSEC PO SCH (05:33)
[2022-07-29 05:43] LABS: BASOPHILS % (AUTO) 0.3 % (0.0-3.0); EOSINOPHILS # (AUTO) 0.1 K/ul (0.0-0.7); EOSINOPHILS % (AUTO) 0.7 % (0.0-7.0); HEMATOCRIT 33.3 % (37.0-47.0); HEMOGLOBIN 11.2 g/dl (12.0-16.0); IMMATURE GRANULOCYTE # (AUTO) 0.1 (0.0-1.0); IMMATURE GRANULOCYTE % (AUTO) 0.4 % (0.0-5.0); LYMPHOCYTES % (AUTO) 8.7 (10.0-50.0); MEAN CORPUSCULAR HEMOGLOBIN 29.9 pg (27.0-31.0); MEAN CORPUSCULAR HGB CONC 33.6 (31.8-35.4); MONOCYTES # (AUTO) 1.1 K/uL (0.4-2.0); NEUTROPHILS # (AUTO) 9.6 K/ul (2.0-6.9); NEUTROPHILS % (AUTO) 80.9 % (42.2-75.2); PLATELET COUNT 345 10^3/uL (140-440); RDW COEFFICIENT OF VARIATION 12.4 % (11.6-14.8); RED BLOOD COUNT 3.74 10^6/ul (4.20-5.40); WHITE BLOOD COUNT 11.81 K/ul (4.6-10.2)
[2022-07-29 05:53] LABS: ALANINE AMINOTRANSFERASE 16.3 U/L (0-35); ALBUMIN 3.25 g/dL (3.5-5.0); ALKALINE PHOSPHATASE 68.4 U/L (53-141); ASPARTATE AMINO TRANSFERASE 21.3 U/L (14-36); BILIRUBIN,TOTAL 0.44 mg/dL (0.2-1.3); BLOOD UREA NITROGEN 9.5 mg/dL (7-17); CALCIUM 8.36 mg/dL (8.4-10.2); CARBON DIOXIDE 26.2 mmol/L (22-30.0); CHLORIDE 107.1 mmol/L (98-107); CREATININE 0.54 mg/dL (0.60-1.30); GLUCOSE 126.8 mg/dL (74-106); POTASSIUM 3.48 mmol/L (3.5-5.1); TOTAL PROTEIN 6.4 g/dL (6.3-8.2)
[2022-07-29] MEDS: ANORO ELLIPTA 62.5-25 MCG INH IH SCH (08:58)
[2022-07-29] MEDS: NORCO 7.5-325 PO SCH ×2 (08:59→20:51)
[2022-07-29] MEDS: LEVAQUIN 750 MG/150 ML D5W 750 MG/150 ML BAG IV SCH (09:00)
[2022-07-29] MEDS: ZOFRAN 4 MG/2 ML IVP SCH ×3 (09:21→20:13)
[2022-07-29] MEDS ORDERED: TORADOL IVP ONE (12:18)
--- NOTE | 2022-07-29 14:16 | PCM.PROG ---
Date Seen by Provider: 07/29/22 Time Seen by Provider: 14:14 Subjective: diverticulitis Objective: Vitals: T=97.2 F, P=80, R=18, PN=974/64, SPO2=94 HEENT: []conjunctiva clear Neck: []supple Lungs: [] no respiratory distress CVS: [] Abdomen: []tender, no rebound Extremities: [] Neurological: []alert Skin: []pink Lab/Tests/Diagnostic Imaging: [] Plan: obtain ct abd to reassess diverticulitis in pt w/ continued pain, continue levaquin and flagyl
--- NOTE | 2022-07-29 15:11 | CT ---
EXAM: CT OF THE ABDOMEN AND PELVIS WITH CONTRAST TECHNIQUE: CT of the abdomen and pelvis was performed with contrast. Multiplanar reformats were perf ormed. HISTORY: Worsening abdominal pain. COMPARISON: CT abdomen pelvis 07/28/2022. FINDINGS: Imaged lower thorax: Mild band-like atelectasis in the lower lobes. Moderate centrilobular emphysema . Liver: Unremarkable. Gallbladder/Bile Ducts: No biliary dilation. Dependently layering material in the gallbladder lumen c ould represent noncalcified stones or sludge. Spleen: Unremarkable. Pancreas: Unremarkable. Adrenals: Unremarkable. Kidneys/Ureters: Unremarkable. Bowel/mesentery/peritoneum: Thickening of the distal esophagus. Small hiatal hernia. Marked thickeni ng of the sigmoid colon with extensive surrounding inflammatory changes and trace free fluid. No free air. No drainable fluid collection in the abdominal cavity. Retroperitoneum/vessels: No aortic aneurysm. Scattered moderate atherosclerotic calcifications. No a denopathy. Pelvis: Bladder wall thickness is normal. Fat containing left inguinal hernia with a 2 cm hernia nec k diameter and 5.3 cm greatest hernia sac diameter. Bones/body wall: No aggressive lesion identified. Lumbar spondylosis including severe right L4-5 face t arthropathy. IMPRESSION: Marked inflammation of the sigmoid colon consistent with sigmoid diverticulitis. No free air or drai nable abscess. Thickened distal esophagus consistent with esophagitis. Small hiatal hernia. Stones and/or sludge layering dependently in the gallbladder. No acute cholecystitis. Emphysema. Atherosclerosis. Fat-containing left inguinal hernia. All CT scans are performed using dose optimization techniques as appropriate to the performed exam an d include at least one of the following: Automated exposure control, adjustment of the mA and/or kV according t o size, and the use of iterative reconstruction technique.
[2022-07-29] MEDS: SODIUM CHLORIDE 1,000 ML IV SCH (16:56)
[2022-07-29] MEDS: LIPITOR PO SCH (20:52)
[2022-07-30] MEDS: DILAUDID 1 MG/ML SYRINGE IVP PRN ×4 (03:26→16:25)
[2022-07-30 05:31] LABS: BASOPHILS % (AUTO) 0.2 % (0.0-3.0); EOSINOPHILS # (AUTO) 0.1 K/ul (0.0-0.7); EOSINOPHILS % (AUTO) 0.4 % (0.0-7.0); HEMATOCRIT 32.3 % (37.0-47.0); HEMOGLOBIN 10.7 g/dl (12.0-16.0); IMMATURE GRANULOCYTE # (AUTO) 0.1 (0.0-1.0); IMMATURE GRANULOCYTE % (AUTO) 0.4 % (0.0-5.0); LYMPHOCYTES # (AUTO) 0.7 K/uL (0.60-3.4); LYMPHOCYTES % (AUTO) 5.7 (10.0-50.0); MEAN CORPUSCULAR HEMOGLOBIN 29.6 pg (27.0-31.0); MEAN CORPUSCULAR HGB CONC 33.1 (31.8-35.4); MEAN CORPUSCULAR VOLUME 89.2 fl (81.0-99.0); MONOCYTES # (AUTO) 1.2 K/uL (0.4-2.0); MONOCYTES % (AUTO) 9.9 (0-10); NEUTROPHILS # (AUTO) 9.8 K/ul (2.0-6.9); NEUTROPHILS % (AUTO) 83.4 % (42.2-75.2); PLATELET COUNT 324 10^3/uL (140-440); RDW COEFFICIENT OF VARIATION 12.4 % (11.6-14.8); RED BLOOD COUNT 3.62 10^6/ul (4.20-5.40)
[2022-07-30 05:43] LABS: ALANINE AMINOTRANSFERASE 12.9 U/L (0-35); ALBUMIN 2.86 g/dL (3.5-5.0); ALKALINE PHOSPHATASE 62.2 U/L (53-141); ASPARTATE AMINO TRANSFERASE 19.9 U/L (14-36); BILIRUBIN,TOTAL 0.33 mg/dL (0.2-1.3); BLOOD UREA NITROGEN 7.1 mg/dL (7-17); CALCIUM 7.93 mg/dL (8.4-10.2); CHLORIDE 105.2 mmol/L (98-107); CREATININE 0.49 mg/dL (0.60-1.30); GLUCOSE 101.3 mg/dL (74-106); POTASSIUM 3.28 mmol/L (3.5-5.1); SODIUM 134.2 mmol/L (134.5-145); TOTAL PROTEIN 5.91 g/dL (6.3-8.2)
[2022-07-30] MEDS: FLAGYL 500 MG/100 ML 500 MG/100 ML BAG IV SCH ×3 (05:55→20:26)
[2022-07-30] MEDS: PRILOSEC PO SCH (05:55)
[2022-07-30] MEDS: SODIUM CHLORIDE 1,000 ML IV SCH (05:59)
[2022-07-30] MEDS: ZOFRAN 4 MG/2 ML IVP SCH ×3 (08:11→20:27)
[2022-07-30] MEDS: ANORO ELLIPTA 62.5-25 MCG INH IH SCH (08:11)
[2022-07-30] MEDS: LEVAQUIN 750 MG/150 ML D5W 750 MG/150 ML BAG IV SCH (08:14)
[2022-07-30] MEDS: NORCO 7.5-325 PO SCH ×2 (09:24→20:30)
[2022-07-30] MEDS ORDERED: POTASSIUM CHLORIDE 20 MEQ/100 ML PREMIX 20 MEQ/100 ML BAG IV ONE (09:25)
--- NOTE | 2022-07-30 10:02 | PCM.PROG ---
Date Seen by Provider: 07/30/22 Time Seen by Provider: 09:20 Subjective: Still painful. Oral intake poor. No vomiting. Objective: Vitals: T=97.1 F, P=91, R=18, KP=613/72, SPO2=95 Alert and in NAD. HEENT: [] Neck: [] Lungs: [] Clear. BS equal. CVS: []RRR Abdomen: []Mild to moderate LLQ tenderness without guarding. Extremities: [] Neurological: [] Skin: [] Lab/Tests/Diagnostic Imaging: [] (1) Diverticulitis: Status: Acute Code(s): K57.92 - Diverticulitis of intestine, part unspecified, without perforation or abscess without bleeding SNOMED Code(s): 393542467 Assessment: Repeat CT abd/pelvis 07/29 with persistent severe sigmoid diverticulitis without perforation. Plan: Continue levaquin and flagyl.
[2022-07-30] MEDS: SODIUM CHLORIDE 0.9%-KCL 20 MEQ 1,000 ML IV SCH (12:56)
[2022-07-30] MEDS: LIPITOR PO SCH (20:26)
[2022-07-31] MEDS: DILAUDID 1 MG/ML SYRINGE IVP PRN ×5 (01:14→20:32)
[2022-07-31] MEDS: SODIUM CHLORIDE 0.9%-KCL 20 MEQ 1,000 ML IV SCH ×2 (03:55→17:47)
[2022-07-31] MEDS: FLAGYL 500 MG/100 ML 500 MG/100 ML BAG IV SCH ×3 (04:54→20:20)
[2022-07-31 05:21] LABS: BASOPHILS % (AUTO) 0.3 % (0.0-3.0); EOSINOPHILS # (AUTO) 0.1 K/ul (0.0-0.7); EOSINOPHILS % (AUTO) 0.8 % (0.0-7.0); HEMATOCRIT 31.8 % (37.0-47.0); HEMOGLOBIN 10.7 g/dl (12.0-16.0); IMMATURE GRANULOCYTE % (AUTO) 0.3 % (0.0-5.0); LYMPHOCYTES # (AUTO) 1.1 K/uL (0.60-3.4); LYMPHOCYTES % (AUTO) 9.5 (10.0-50.0); MEAN CORPUSCULAR HEMOGLOBIN 30.1 pg (27.0-31.0); MEAN CORPUSCULAR HGB CONC 33.6 (31.8-35.4); MEAN CORPUSCULAR VOLUME 89.3 fl (81.0-99.0); MONOCYTES % (AUTO) 8.4 (0-10); NEUTROPHILS # (AUTO) 9.6 K/ul (2.0-6.9); NEUTROPHILS % (AUTO) 80.7 % (42.2-75.2); PLATELET COUNT 340 10^3/uL (140-440); RDW COEFFICIENT OF VARIATION 12.4 % (11.6-14.8); RED BLOOD COUNT 3.56 10^6/ul (4.20-5.40); WHITE BLOOD COUNT 11.88 K/ul (4.6-10.2)
[2022-07-31 05:34] LABS: ALANINE AMINOTRANSFERASE 11.6 U/L (0-35); ALBUMIN 2.84 g/dL (3.5-5.0); ALKALINE PHOSPHATASE 63.4 U/L (53-141); ASPARTATE AMINO TRANSFERASE 19.4 U/L (14-36); BILIRUBIN,TOTAL 0.37 mg/dL (0.2-1.3); BLOOD UREA NITROGEN 5.1 mg/dL (7-17); CALCIUM 7.99 mg/dL (8.4-10.2); CHLORIDE 104.1 mmol/L (98-107); CREATININE 0.49 mg/dL (0.60-1.30); GLUCOSE 77.6 mg/dL (74-106); POTASSIUM 3.45 mmol/L (3.5-5.1); SODIUM 133.8 mmol/L (134.5-145); TOTAL PROTEIN 5.91 g/dL (6.3-8.2)
[2022-07-31] MEDS: PRILOSEC PO SCH (05:51)
[2022-07-31] MEDS: NORCO 7.5-325 PO SCH ×3 (08:18→20:33)
[2022-07-31] MEDS: ANORO ELLIPTA 62.5-25 MCG INH IH SCH (08:19)
[2022-07-31] MEDS: LEVAQUIN 750 MG/150 ML D5W 750 MG/150 ML BAG IV SCH (08:19)
[2022-07-31] MEDS: ZOFRAN 4 MG/2 ML IVP SCH ×3 (10:11→20:19)
--- NOTE | 2022-07-31 13:31 | PCM.PROG ---
Date Seen by Provider: 07/31/22 Time Seen by Provider: 13:29 Subjective: dx diverticulitis pt asking for less pain meds, feeling better Objective: Vitals: T=97.2 F, P=80, R=16, VQ=101/87, SPO2=95 HEENT: []conjunctiva clear Neck: []supple Lungs: [] clear CVS: []rrr Abdomen: []soft no rebound Extremities: []warm and dry Neurological: []alert Skin: []pink Lab/Tests/Diagnostic Imaging: [] wbc 11.8, Hb 10.7, K+ 3.4 (1) Diverticulitis: Status: Acute Code(s): K57.92 - Diverticulitis of intestine, part unspecified, without perforation or abscess without bleeding SNOMED Code(s): 338133923 Plan: discharge in am
[2022-07-31] MEDS: LIPITOR PO SCH (20:19)
[2022-08-01] MEDS: DILAUDID 1 MG/ML SYRINGE IVP PRN ×2 (00:28→04:55)
[2022-08-01] MEDS: FLAGYL 500 MG/100 ML 500 MG/100 ML BAG IV SCH ×2 (04:31→13:10)
[2022-08-01] MEDS: SODIUM CHLORIDE 0.9%-KCL 20 MEQ 1,000 ML IV SCH (04:31)
[2022-08-01 05:02] LABS: BASOPHILS % (AUTO) 0.2 % (0.0-3.0); EOSINOPHILS # (AUTO) 0.2 K/ul (0.0-0.7); EOSINOPHILS % (AUTO) 1.3 % (0.0-7.0); IMMATURE GRANULOCYTE # (AUTO) 0.1 (0.0-1.0); IMMATURE GRANULOCYTE % (AUTO) 0.6 % (0.0-5.0); LYMPHOCYTES # (AUTO) 1.4 K/uL (0.60-3.4); LYMPHOCYTES % (AUTO) 10.8 (10.0-50.0); MEAN CORPUSCULAR HEMOGLOBIN 29.7 pg (27.0-31.0); MEAN CORPUSCULAR HGB CONC 33.3 (31.8-35.4); MEAN CORPUSCULAR VOLUME 89.2 fl (81.0-99.0); MONOCYTES % (AUTO) 7.8 (0-10); NEUTROPHILS # (AUTO) 9.9 K/ul (2.0-6.9); NEUTROPHILS % (AUTO) 79.3 % (42.2-75.2); PLATELET COUNT 395 10^3/uL (140-440); RDW COEFFICIENT OF VARIATION 12.4 % (11.6-14.8); WHITE BLOOD COUNT 12.47 K/ul (4.6-10.2)
[2022-08-01 05:16] LABS: ALANINE AMINOTRANSFERASE 11.8 U/L (0-35); ALBUMIN 2.91 g/dL (3.5-5.0); ALKALINE PHOSPHATASE 61.5 U/L (53-141); ASPARTATE AMINO TRANSFERASE 19.3 U/L (14-36); BILIRUBIN,TOTAL 0.38 mg/dL (0.2-1.3); BLOOD UREA NITROGEN 3.6 mg/dL (7-17); CALCIUM 7.91 mg/dL (8.4-10.2); CARBON DIOXIDE 26.2 mmol/L (22-30.0); CHLORIDE 101.9 mmol/L (98-107); CREATININE 0.54 mg/dL (0.60-1.30); GLUCOSE 69.6 mg/dL (74-106); POTASSIUM 3.57 mmol/L (3.5-5.1); SODIUM 132.3 mmol/L (134.5-145); TOTAL PROTEIN 5.86 g/dL (6.3-8.2)
[2022-08-01] MEDS: PRILOSEC PO SCH (05:36)
[2022-08-01] MEDS: NORCO 7.5-325 PO SCH (08:57)
[2022-08-01] MEDS: ANORO ELLIPTA 62.5-25 MCG INH IH SCH (08:58)
[2022-08-01] MEDS: LEVAQUIN 750 MG/150 ML D5W 750 MG/150 ML BAG IV SCH ×2 (08:59→12:32)
[2022-08-01] MEDS: ZOFRAN 4 MG/2 ML IVP SCH (10:15)
[2022-08-01 14:55] VITALS: BP 127/80; TEMP 96.1
--- NOTE | 2022-08-02 15:49 | PCM.PROG ---
Date Seen by Provider: 08/01/22 Time Seen by Provider: 12:55 Subjective: no acute complaint x this am. no acute GI loss,SOB or chest pain. Objective: Vitals: T=96.1 F, P=80, R=17, ZK=545/80, SPO2=94 HEENT: []wnl Neck: []supple Lungs: []chest was clear CVS: []rrr Abdomen: []benign Extremities: []no acute abnormality Neurological: []non-focal Skin: []grossly normal Lab/Tests/Diagnostic Imaging: []Please see the reports. (1) Diverticulitis: Status: Acute Code(s): K57.92 - Diverticulitis of intestine, part unspecified, without perforation or abscess without bleeding SNOMED Code(s): 985876251 Plan: 08/01/2022: Home. PMD in 1-2 days. Rx to pharmacy. See discharge orders.
--- NOTE | 2022-08-02 16:28 | PCM.DC ---
Final Diagnosis: Diverticulitis Physical Exam Appearance: Well-appearing, No pain distress and Well-nourished Ill-appearing: None Pain Distress: None Eyes: RAFAEL, EOMI and Conjunctiva clear ENT: Ears normal, Nose normal and Oropharynx normal Neck: Supple Respiratory: Airway patent, Breath sounds clear, Breath sounds equal and Respirations nonlabored Cardiovascular: RRR, Pulses normal, No rub and No murmur GI/: Soft, Nontender, No masses, Bowel sounds normal and No Organomegaly Musculoskeletal: Normal strength, ROM intact, No edema and No calf tenderness Skin: Warm, Dry and Normal color Neurological: Sensation intact, Motor intact, Reflexes intact, Cranial nerves intact, Alert and Oriented Psychiatric: Affect appropriate and Mood appropriate (1) Diverticulitis: Status: Acute Code(s): K57.92 - Diverticulitis of intestine, part unspecified, without perforation or abscess without bleeding SNOMED Code(s): 732796346 Reason for Hospitalization: Tx of diverticulitis, resolution of abdominal pain and GI loss. Prognosis/Condition at Discharge: Stable. Good prognosis. Medications at Discharge: Amoxicillin, Flagyl, Prilosec, Zofran. Lab/Diagnostics: See the report. Education Provided to Patient and Family: See the discharge summary. Follow-ups: PMD in 1-2 days. Discharge Disposition: Home Hospital Course: Pt was admitted 07/28/2022 and progressed steadily to being pain-free on 08/01/2022. Plan: Home. PMD in 1-2 days. Rx to pharmacy. See the discharge orders.
== END 2022-08-01 17:07 | disposition home or self-care (01) | DRG 392 ==
LOC: ED 06:57 → MEDSURG A 08:36
PROVIDERS: ADMIT Emergency Medicine Emergency Medical Services; ATTEND Emergency Medicine
DX: Z51.81 Encounter for therapeutic drug level monitoring; K57.32 Diverticulitis of large intestine without perforation or abscess without bleeding; M19.90 Unspecified osteoarthritis, unspecified site; E78.5 Hyperlipidemia, unspecified; K44.9 Diaphragmatic hernia without obstruction or gangrene; Z20.822 Contact with and (suspected) exposure to COVID-19; J44.9 Chronic obstructive pulmonary disease, unspecified; Z79.899 Other long term (current) drug therapy; F17.210 Nicotine dependence, cigarettes, uncomplicated; N02.9 Recurrent and persistent hematuria with unspecified morphologic changes; Z79.891 Long term (current) use of opiate analgesic; M48.02 Spinal stenosis, cervical region